=== PATIENT | female | born 2000 | race African-American/Black ===

== ENCOUNTER 2019-03-28 12:48 | Emergency (ER) | payer SELFPAY ==
[~2019-03-28] VITALS: Ht 162.6 cm; Wt 60.0 kg
[2019-03-28 13:20] VITALS: BP 101/50
== END 2019-03-28 17:03 | disposition left against medical advice (07) ==
LOC: ER 12:48
DX: J00 Acute nasopharyngitis [common cold] (principal); Z53.21 Procedure and treatment not carried out due to patient leaving prior to being seen by health care provider